=== PATIENT | female | born 1955 | race Caucasian/White ===

== ENCOUNTER → 2017-04-07 | Outpatient (CLI) | payer OTHER | END | disposition home or self-care (01) | LOC: KCIC 09:13 | DX: S92.521D Displaced fracture of middle phalanx of right lesser toe(s), subsequent encounter for fracture with routine healing (principal); X58.XXXD Exposure to other specified factors, subsequent encounter | CPT/HCPCS: 73630; 73660 ==

== ENCOUNTER → 2019-04-04 | Outpatient (CLI) | payer OTHER ==
--- NOTE | 2019-04-04 15:52 | KCIC ---
EXAM: Right wrist, 3 views. HISTORY: Pain after opening a jar. COMPARISON: None. FINDINGS: 3 views of the right wrist are obtained. 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 The scapholunate joint space is within normal limits. There is no acute fracture, dislocation or subluxation. IMPRESSION: No acute osseous finding. Electronically signed by: Lien Brower MD (04/04/2019 3:49 PM) [facility] [place]
== END | disposition home or self-care (01) ==
LOC: KCIC 13:43
PROVIDERS: ATTEND Internal Medicine
DX: M25.531 Pain in right wrist (principal)
CPT/HCPCS: 73110